=== PATIENT | female | born 1950 | race Caucasian/White ===

== ENCOUNTER → 2016-03-17 | Outpatient (CLI) | payer MEDICARE, OTHER ==
[~2016-03-17] MED LIST: CITA10TA4 PO; CYCL10TA45; HYDR-3719 PO; INFL100V IV; METH2.5T PO; SERT50TA2 PO
--- NOTE | 2016-03-17 18:20 | Diagnostic Imaging Report ---
INDICATION: Precordial pain. Comparison with 02/15/2014. FINDINGS: PA chest shows the lungs to be well aerated and clear. No pneumothorax or pleural effusion. Oblique views of the right ribs show no evidence of fracture. IMPRESSION: Normal portable AP chest and right ribs. Dictated by: Dictated on workstation # [id number]
== END ==
LOC: RAD 16:37
PROVIDERS: ATTEND Family Medicine
DX: R07.2 Precordial pain (principal)
CPT/HCPCS: 71101

== ENCOUNTER → 2016-04-08 | Outpatient (CLI) | payer MEDICARE, OTHER ==
[2016-04-08 10:35] LABS: BASOPHILS % (AUTO) 1 % (0-2); EOSINOPHILS # (AUTO) 0.2 10^3uL; EOSINOPHILS % (AUTO) 3 % (0-4); LYMPHOCYTES # (AUTO) 1.5 X10^3; MEAN CORPUSCULAR HEMOGLOBIN 29.6 PG (26.0-34.0); MEAN CORPUSCULAR HGB CONC 33.3 g/dL (31.0-37.0); MEAN CORPUSCULAR VOLUME 89 FL (80-100); MEAN PLATELET VOLUME 11.9 FL (6.0-9.5); MONOCYTES # (AUTO) 0.2 X10^3; MONOCYTES % (AUTO) 4 % (3-11); NEUTROPHILS % (AUTO) 68 % (51-67); PLATELET COUNT 157 10^3uL (150-450); WHITE BLOOD COUNT 5.97 10^3uL (4.0-11.0)
[2016-04-08 10:57] LABS: ALBUMIN 4.1 g/dL (3.4-5.0); ANION GAP 13.6 MEQ/L (3-15); CALCULATED IONIZED CALCIUM 4.1 mg/dL (3.8-4.6)
[2016-04-08 11:17] LABS: ERYTHROCYTE SEDIMENTATION RT* 6 mm/hr (0-23)
== END ==
LOC: LAB 10:10
PROVIDERS: ATTEND Internal Medicine Rheumatology
DX: M54.08 Panniculitis affecting regions of neck and back, sacral and sacrococcygeal region (principal); M15.0 Primary generalized (osteo)arthritis; K06.9 Disorder of gingiva and edentulous alveolar ridge, unspecified
CPT/HCPCS: 36415; 80053; 85025; 85652; 86140

== ENCOUNTER → 2016-07-01 | Outpatient (CLI) | payer MEDICARE, OTHER ==
[2016-07-01 10:59] LABS: MEAN CORPUSCULAR HEMOGLOBIN 29.5 PG (26.0-34.0); WHITE BLOOD COUNT 5.02 10^3uL (4.0-11.0)
[2016-07-01 11:27] LABS: ANION GAP 14.1 MEQ/L (3-15); CALCULATED IONIZED CALCIUM 4.1 mg/dL (3.8-4.6)
== END ==
LOC: LAB 10:47
PROVIDERS: ATTEND Internal Medicine Rheumatology
DX: M06.09 Rheumatoid arthritis without rheumatoid factor, multiple sites (principal)
CPT/HCPCS: 36415; 80053; 85027; 85652; 86140

== ENCOUNTER → 2016-07-23 | Outpatient (CLI) | payer MEDICARE, OTHER ==
[2016-07-23 22:28] LABS: IRON 56 ug/dL (50-170)
[2016-07-23 22:39] LABS: VITAMIN B 12 1053 pg/mL (213-816)
== END ==
LOC: LAB 15:47
PROVIDERS: ATTEND Family Medicine
DX: R27.0 Ataxia, unspecified (principal); F41.8 Other specified anxiety disorders; G62.89 Other specified polyneuropathies; R41.82 Altered mental status, unspecified; M62.81 Muscle weakness (generalized); D50.9 Iron deficiency anemia, unspecified; E55.9 Vitamin D deficiency, unspecified; R53.83 Other fatigue
CPT/HCPCS: 36415; 82306; 82607; 82728; 83540; 84443; 85652